=== PATIENT | female | born 1970 | race Caucasian/White ===

== ENCOUNTER 2024-03-10 06:34 | Day surgery (SDC) | payer OTHER, SELFPAY | END 2024-03-10 14:58 | disposition home or self-care (01) | LOC: GI 06:34 | PROVIDERS: ATTENDING PHYSICIAN Internal Medicine Gastroenterology | DX: Z12.11 Encounter for screening for malignant neoplasm of colon (principal); K64.8 Other hemorrhoids; D12.0 Benign neoplasm of cecum; Z80.0 Family history of malignant neoplasm of digestive organs | CPT/HCPCS: 45380; 88305 ==